=== PATIENT | male | born 1965 | race Asian ===

== ENCOUNTER 2017-09-17 14:52 | Emergency (ER) | payer BC ==
[2017-09-17 15:00] VITALS: BP 173/110
--- NOTE | 2017-09-17 15:15 | ED Physician Documentation ---
PD HPI HEAD INJURY - Stated complaint Stated Complaint: TOUNGE INJURY - Chief complaint Chief Complaint: Laceration - History obtained from History obtained from: Patient - History of Present Illness Mechanism of head injury: Laceration (He bit his Tongue very hard while eating at lunchtime to prior to arrival and has a laceration on the anterior part of the left side of the tongue that is continuing to bleed. Tetanus is up-to-date. ) Review of Systems Constitutional: denies: Fever, Chills Ears: reports: Reviewed and negative Nose: reports: Reviewed and negative PD PAST MEDICAL HISTORY - Past Medical History Past Medical History: Yes Cardiovascular: Hypertension, High cholesterol - Present Medications Home Medications: Ambulatory Orders Medication Instructions Recorded Confirmed Amox/Clav 875/125 [Augmentin] 1 each PO Q12H #6 tablet 09/17/17 Dextroamphetamine/Amphetamine 09/17/17 [Adderall 20 mg Tablet] Losartan [Cozaar] 09/17/17 Meloxicam 09/17/17 Omeprazole 09/17/17 - Allergies Allergies/Adverse Reactions: Allergies Allergy/AdvReac Type Severity Reaction Status Date / Time amlodipine Allergy Mild Hives Verified 09/17/17 15:01 Sulfa (Sulfonamide Allergy Mild Rash Verified 09/17/17 15:01 Antibiotics) - Social History Does the pt smoke?: No Smoking Status: Never smoker Does the pt have substance abuse?: No - Immunizations Immunizations are current?: Yes PD ED PE NORMAL - Vitals Vital signs reviewed: Yes - General General: Alert and oriented X 3, No acute distress - Neuro Neuro: Alert and oriented X 3, Normal speech - Psych Psych: Normal mood PD ED PE EXPANDED - HEENT HEENT Visual: 1 - laceration (1 cm V-shaped laceration with mild active bleeding into the muscle, not through and through.) Results - Vitals Vitals: Vital Signs - 24 hr 09/17/17 14:56 Temperature 36.9 C Heart Rate 93 Respiratory 18 Rate Blood Pressure 173/110 H O2 Saturation 99 Oxygen O2 Source Room air Procedures - Laceration (location) tongue Length in cm: 1 Wound type: Linear, Into muscle Anesthesia: Lidocaine 1%, With bicarb Deep layer closure: Vicryl, size #-0 - enter number (5-0), # sutures - enter number (2) Other: Tetanus UTD Complexity: Simple PD MEDICAL DECISION MAKING - Sepsis Event Vital Signs: Vital Signs - 24 hr 09/17/17 14:56 Temperature 36.9 C Heart Rate 93 Respiratory 18 Rate Blood Pressure 173/110 H O2 Saturation 99 Oxygen O2 Source Room air Departure - Departure Disposition: 01 Home, Self Care Clinical Impression: Tongue laceration Qualifiers: Encounter type: initial encounter Qualified Code(s): S01.512A - Laceration without foreign body of oral cavity, initial encounter Condition: Good Record reviewed to determine appropriate education?: Yes Instructions: ED Laceration Mouth Prescriptions: Amox/Clav 875/125 [Augmentin] 1 each PO Q12H #6 tablet Comments: Your blood pressure was elevated today on check into the emergency department. This does not mean that you have hypertension, it is a common phenomenon to come to the emergency department and have elevated blood pressure. I recommend that you see your primary care physician within the week to have it rechecked when you are feeling better.
[2017-09-17] MEDS ORDERED: BUFFERED LIDOCAINE 10 ML SYRINGE ONE (15:20)
[2017-09-17] MEDS ORDERED: AMOX/CLAV 875 MG/125 MG TABLET PO STA (15:22)
== END 2017-09-17 15:32 | disposition home or self-care (01) ==
LOC: ED 14:52 → EDBD 14:52 → ED 15:32
DX: S01.512A Laceration without foreign body of oral cavity, initial encounter (principal); I10 Essential (primary) hypertension
CPT/HCPCS: 12011; 99282; 99283; A9270